=== PATIENT | male | born 1985 | race Caucasian/White ===

== ENCOUNTER → 2020-08-16 | Outpatient (CLI) | payer MEDICARE, MEDICAID ==
[~2020-08-16] MED LIST: FLUP10 PO
== END | disposition home or self-care (01) ==
LOC: LABPV 11:45
PROVIDERS: ATTEND Psychiatry & Neurology Psychiatry
DX: F25.0 Schizoaffective disorder, bipolar type (principal)

== ENCOUNTER → 2021-01-03 | Outpatient (CLI) | payer MEDICARE, MEDICAID ==
[~2021-01-03] MED LIST changes: -FLUP10 PO; +FLUP10TA13 PO
[2021-01-03 23:28] LABS: HEMOGLOBIN A1C 5.6 % (3.8-5.6)
[2021-01-03 23:33] LABS: CHOL/HDL RATIO 4.8 (4.2-7.3)
== END | disposition home or self-care (01) ==
LOC: LABPV 12:30
PROVIDERS: ATTEND Psychiatry & Neurology Psychiatry
DX: F25.0 Schizoaffective disorder, bipolar type (principal); Z79.899 Other long term (current) drug therapy
CPT/HCPCS: 82947; 83036

== ENCOUNTER → 2021-04-04 | Outpatient (CLI) | payer MEDICARE, MEDICAID | END | disposition home or self-care (01) | LOC: LABMN 13:05 | PROVIDERS: ATTEND Psychiatry & Neurology Psychiatry | DX: F25.0 Schizoaffective disorder, bipolar type (principal); Z79.899 Other long term (current) drug therapy | CPT/HCPCS: 80164; 84439; 84443; 84481 ==

== ENCOUNTER → 2021-11-28 | Outpatient (CLI) | payer MEDICARE, MEDICAID | END | disposition home or self-care (01) | LOC: LABPV 13:12 | PROVIDERS: ATTEND Psychiatry & Neurology Psychiatry | DX: F25.0 Schizoaffective disorder, bipolar type (principal) | CPT/HCPCS: 80164 ==

== ENCOUNTER → 2022-01-09 | Outpatient (CLI) | payer MEDICARE, MEDICAID ==
[2022-01-09 14:47] LABS: HEMOGLOBIN A1C 5.8 % (3.8-5.6)
[2022-01-09 14:54] LABS: CHOL/HDL RATIO 4.3 (4.2-7.3)
== END | disposition home or self-care (01) ==
LOC: LABMN 12:01
PROVIDERS: ATTEND Psychiatry & Neurology Psychiatry
DX: F20.9 Schizophrenia, unspecified (principal); Z79.899 Other long term (current) drug therapy
CPT/HCPCS: 80061; 82947; 83036

== ENCOUNTER → 2022-12-10 | Outpatient (CLI) | payer MEDICARE, MEDICAID ==
[~2022-12-10] MED LIST changes: -FLUP10TA13 PO; +FLUP10TA28 PO
[2022-12-10 18:23] LABS: HEMOGLOBIN A1C 5.6 % (3.8-5.6)
[2022-12-10 18:25] LABS: CHOL/HDL RATIO 3.7 (4.2-7.3)
== END | disposition home or self-care (01) ==
LOC: LABMN 12:40
PROVIDERS: ATTEND Psychiatry & Neurology Psychiatry
DX: F25.0 Schizoaffective disorder, bipolar type (principal); Z79.899 Other long term (current) drug therapy
CPT/HCPCS: 80061; 82947; 83036

== ENCOUNTER 2024-05-28 12:40 | Outpatient (CLI) | payer MEDICARE, MEDICAID ==
[2024-05-28 14:03] VITALS: BP 122/81; PULSE 80; RESP 18; TEMP 98.1; O2SAT 99
== END 2024-05-28 15:20 | disposition home or self-care (01) ==
LOC: CSU 12:40 → EDSTATUS 05-30 13:16
PROVIDERS: ATTEND Nurse Practitioner Acute Care
DX: F25.0 Schizoaffective disorder, bipolar type (principal); F10.90 Alcohol use, unspecified, uncomplicated
CPT/HCPCS: 90839; 90840

== ENCOUNTER 2024-06-06 13:55 | Outpatient (CLI) | payer MEDICARE, MEDICAID ==
[2024-06-06 15:00] VITALS: BP 118/78; PULSE 78; RESP 20; TEMP 98; O2SAT 97
== END 2024-06-06 16:50 | disposition home or self-care (01) ==
LOC: CSU 13:55
PROVIDERS: ATTEND Nurse Practitioner Psychiatric/Mental Health
DX: F32.A Depression, unspecified (principal); F25.0 Schizoaffective disorder, bipolar type; F19.90 Other psychoactive substance use, unspecified, uncomplicated
CPT/HCPCS: 90839; 90840